=== PATIENT | male | born 1980 | race Caucasian/White ===

== ENCOUNTER 2017-08-25 15:22 | Emergency (ER) | payer OTHER ==
[2015-06-11 11:03] VITALS: Wt 90.7 kg
[~2017-08-25 15:22] MED LIST: DOCU-202 PO; METF-421 PO; MINO100T8 PO; MULT1CAP59 PO; PER PO
--- NOTE | 2017-08-25 15:28 | ER Report ---
History and Physical Time Seen By MD: 15:28 Allergies: Coded Allergies: No Known Drug Allergies (Unverified , 08/25/17) Home Meds Reported Medications Multivitamin (MULTIVITAMINS) 1 Each Capsule, 1 EACH PO, CAPSULE 06/10/15 Metformin Hcl (METFORMIN HCL) 1,000 Mg Tablet, 1 TAB PO BID, TAB 06/10/15 Discontinued Reported Medications Minocycline Hcl (MINOCYCLINE HCL) 100 Mg Tablet, 100 MG PO BID, CAPSULE 06/10/15 Hx Smoking: No Smoking Status: Never Smoker Hx Substance Use Disorder: No Hx Alcohol Use: No Constitutional Vital Sign - Last 24 Hours 08/25/17 15:32 Temp 98.4 Pulse 92 Resp 24 B/P (MAP) 157/120 Pulse Ox 98 O2 Delivery Room Air Medical Decision Making Data Points Result Diagram: 08/25/17 1537 Laboratory Hematology Test 08/25/17 15:31 08/25/17 15:37 Red Blood Count 5.94 M/uL (4.00-5.60) Mean Corpuscular Volume 85.0 fL (80.0-96.0) Mean Corpuscular Hemoglobin 30.5 pg (26.0-33.0) Mean Corpuscular Hemoglobin Concent 35.9 g/dL (32.0-36.0) Red Cell Distribution Width 13.6 % (11.5-14.5) Mean Platelet Volume 7.6 fL (7.2-11.1) Neutrophils (%) (Auto) 67.8 % (39.4-72.5) Lymphocytes (%) (Auto) 21.2 % (17.6-49.6) Monocytes (%) (Auto) 8.5 % (4.1-12.4) Eosinophils (%) (Auto) 1.3 % (0.4-6.7) Basophils (%) (Auto) 1.2 % (0.3-1.4) Nucleated RBC Relative Count (auto) 0.1 /100WBC Neutrophils # (Auto) 6.7 K/uL (2.0-7.4) Lymphocytes # (Auto) 2.1 K/uL (1.3-3.6) Monocytes # (Auto) 0.8 K/uL (0.3-1.0) Eosinophils # (Auto) 0.1 K/uL (0.0-0.5) Basophils # (Auto) 0.1 K/uL (0.0-0.1) Nucleated RBC Absolute Count (auto) 0.01 K/uL Sodium Level 142 mmol/L (137-145) Potassium Level 4.1 mmol/L (3.5-5.0) Chloride Level 101 mmol/L (98-107) Carbon Dioxide Level 23 mmol/L (22-30) Blood Urea Nitrogen 13 mg/dl (9-21) Creatinine 0.80 mg/dl (0.66-1.25) Glomerular Filtration Rate Calc > 60.0 Random Glucose 227 mg/dl (75-110) Calcium Level 10.2 mg/dl (8.4-10.2) Total Bilirubin 0.7 mg/dl (0.2-1.3) Aspartate Amino Transf (AST/SGOT) 61 U/L (0-35) Alanine Aminotransferase (ALT/SGPT) 111 U/L (0-56) Alkaline Phosphatase 109 U/L (0-126) Total Protein 8.3 gm/dl (6.3-8.2) Albumin 5.1 g/dl (3.5-5.0) Chemistry Test 08/25/17 15:31 08/25/17 15:37 White Blood Count 9.9 k/uL (4.5-11.0) Red Blood Count 5.94 M/uL (4.00-5.60) Hemoglobin 18.1 g/dL (14.0-18.0) Hematocrit 50.5 % (42.0-52.0) Mean Corpuscular Volume 85.0 fL (80.0-96.0) Mean Corpuscular Hemoglobin 30.5 pg (26.0-33.0) Mean Corpuscular Hemoglobin Concent 35.9 g/dL (32.0-36.0) Red Cell Distribution Width 13.6 % (11.5-14.5) Platelet Count 333 K/uL (150-450) Mean Platelet Volume 7.6 fL (7.2-11.1) Neutrophils (%) (Auto) 67.8 % (39.4-72.5) Lymphocytes (%) (Auto) 21.2 % (17.6-49.6) Monocytes (%) (Auto) 8.5 % (4.1-12.4) Eosinophils (%) (Auto) 1.3 % (0.4-6.7) Basophils (%) (Auto) 1.2 % (0.3-1.4) Nucleated RBC Relative Count (auto) 0.1 /100WBC Neutrophils # (Auto) 6.7 K/uL (2.0-7.4) Lymphocytes # (Auto) 2.1 K/uL (1.3-3.6) Monocytes # (Auto) 0.8 K/uL (0.3-1.0) Eosinophils # (Auto) 0.1 K/uL (0.0-0.5) Basophils # (Auto) 0.1 K/uL (0.0-0.1) Nucleated RBC Absolute Count (auto) 0.01 K/uL Glomerular Filtration Rate Calc > 60.0 Calcium Level 10.2 mg/dl (8.4-10.2) Total Bilirubin 0.7 mg/dl (0.2-1.3) Aspartate Amino Transf (AST/SGOT) 61 U/L (0-35) Alanine Aminotransferase (ALT/SGPT) 111 U/L (0-56) Alkaline Phosphatase 109 U/L (0-126) Total Protein 8.3 gm/dl (6.3-8.2) Albumin 5.1 g/dl (3.5-5.0) Urinalysis Test 08/25/17 15:31 Depart Departure Latest Vital Signs Vital Signs Date Time Temp Pulse Resp B/P (MAP) Pulse Ox O2 Delivery O2 Flow Rate FiO2 08/25/17 15:32 98.4 92 24 157/120 98 Room Air MARTIN CHAHAL DO August 25, 2017 15:28
--- NOTE | 2017-08-25 15:28 | ER Report ---
History and Physical Time Seen By MD: 15:27 HPI/ROS CHIEF COMPLAINT: R Flank pain HISTORY OF PRESENT ILLNESS: Pt here for evaluation of r flank pain for last 3 days. pain was initially intermittent but now constant. + nausea no vomiting. pt unable to get comfortable. went to urgent care and urine was checked and showed blood and glucose. Pt sent to ed for further evalution. Pt never had this pain before. Starts in r flank and radiates around to front. no trouble with urination. has had loose stools. no fevers. no chills REVIEW OF SYSTEMS: Constitutional: No fever, no chills. Eyes: No discharge. ENT: No sore throat. Cardiovascular: No chest pain, no palpitations. Respiratory: No cough, no shortness of breath. Gastrointestinal: + abdominal pain, + nausa, no vomiting. Genitourinary: No hematuria. Musculoskeletal:+ back pain. Skin: No rashes. Neurological: No headache. Allergies: Coded Allergies: No Known Drug Allergies (Unverified , 08/25/17) Home Meds Active Scripts Tamsulosin Hcl (FLOMAX) 0.4 Mg Cap.er.24h, 0.4 MG PO DAILY, #14 CAP Prov:LAURORA,MARTIN V DO 08/25/17 Oxycodone Hcl/Acetaminophen (OXYCODONE-ACETAMINOPHEN 5-325) 1 Each Tablet, 1-2 EACH PO Q4-6H Y for pain, #20 TAB Prov:LAURORA,MARTIN V DO 08/25/17 Reported Medications Multivitamin (MULTIVITAMINS) 1 Each Capsule, 1 EACH PO, CAPSULE 06/10/15 Metformin Hcl (METFORMIN HCL) 1,000 Mg Tablet, 1 TAB PO BID, TAB 06/10/15 Discontinued Reported Medications Minocycline Hcl (MINOCYCLINE HCL) 100 Mg Tablet, 100 MG PO BID, CAPSULE 06/10/15 Past Medical/Surgical History Pmhx: dm Pshx: appy Reviewed Nurses Notes: Yes Old Medical Records Reviewed: Yes Hx Smoking: No Smoking Status: Never Smoker Hx Substance Use Disorder: No Hx Alcohol Use: No Constitutional Vital Sign - Last 24 Hours 08/25/17 08/25/17 08/25/17 08/25/17 15:32 15:32 15:52 16:00 Temp 98.4 Pulse 92 94 Resp 24 B/P (MAP) 157/120 (132) 157/120 148/107 (121) Pulse Ox 98 93 O2 Delivery Room Air 08/25/17 08/25/17 08/25/17 08/25/17 16:22 16:30 16:52 17:00 Pulse 94 91 B/P (MAP) 142/96 (111) 136/86 (103) Pulse Ox 93 93 Intake and Output 08/25/17 08/25/17 08/26/17 15:00 23:00 07:00 Intake Total 500 ml Balance 500 ml Physical Exam General Appearance: The patient is alert, has no immediate need for airway protection and no signs of toxicity. Eyes: Pupils equal and round no pallor or injection, EOMI ENT: no pharyngeal erythema or exudates, Mucous membranes are moist, Respiratory: There are no retractions, lungs are clear to auscultation. Cardiovascular: Regular rate and rhythm. pulses are equal and symmetrical Gastrointestinal: Abdomen is soft with ruq tenderness, no masses, bowel sounds normal, no guarding, no rigidity or rebound Neurological: Cranial nerves II-XII grossly intact, no sensory or motor loss Skin: Warm and dry, no rashes. Musculoskeletal: Neck is supple non tender, no vertebral tenderness, + r cva tenderness Extremities are nontender, non swollen and have full range of motion. DIFFERENTIAL DIAGNOSIS: After history and physical exam differential diagnosis was considered for kidney stone, cholecystitis, muscleskeletal Medical Decision Making Data Points Result Diagram: 08/25/17 1537 08/25/17 1537 Laboratory Hematology Test 08/25/17 15:31 08/25/17 15:37 Urine Color Straw Urine Clarity Clear Urine pH 5.0 pH (4.8-9.5) Urine Specific [place] 1.014 Urine Protein 30 mg/dL (NEGATIVE) Urine Glucose (UA) 500 mg/dL (NEGATIVE) Urine Ketones Negative mg/dL (NEGATIVE) Urine Blood Moderate (NEGATIVE) Urine Nitrite Negative (NEGATIVE) Urine Bilirubin Negative (NEGATIVE) Urine Urobilinogen Negative mg/dL (0.2-1.9) Urine Leukocyte Esterase Negative (NEGATIVE) Urine RBC 4 /HPF (0-2/HPF) Urine WBC None /HPF (0-5/HPF) Urine Squamous Epithelial Cells None /LPF (</=FEW) Urine Bacteria Negative /HPF (NONE-FEW) Urine Mucus None /HPF (NONE-FEW) Red Blood Count 5.94 M/uL (4.00-5.60) Mean Corpuscular Volume 85.0 fL (80.0-96.0) Mean Corpuscular Hemoglobin 30.5 pg (26.0-33.0) Mean Corpuscular Hemoglobin Concent 35.9 g/dL (32.0-36.0) Red Cell Distribution Width 13.6 % (11.5-14.5) Mean Platelet Volume 7.6 fL (7.2-11.1) Neutrophils (%) (Auto) 67.8 % (39.4-72.5) Lymphocytes (%) (Auto) 21.2 % (17.6-49.6) Monocytes (%) (Auto) 8.5 % (4.1-12.4) Eosinophils (%) (Auto) 1.3 % (0.4-6.7) Basophils (%) (Auto) 1.2 % (0.3-1.4) Nucleated RBC Relative Count (auto) 0.1 /100WBC Neutrophils # (Auto) 6.7 K/uL (2.0-7.4) Lymphocytes # (Auto) 2.1 K/uL (1.3-3.6) Monocytes # (Auto) 0.8 K/uL (0.3-1.0) Eosinophils # (Auto) 0.1 K/uL (0.0-0.5) Basophils # (Auto) 0.1 K/uL (0.0-0.1) Nucleated RBC Absolute Count (auto) 0.01 K/uL Sodium Level 142 mmol/L (137-145) Potassium Level 4.1 mmol/L (3.5-5.0) Chloride Level 101 mmol/L (98-107) Carbon Dioxide Level 23 mmol/L (22-30) Blood Urea Nitrogen 13 mg/dl (9-21) Creatinine 0.80 mg/dl (0.66-1.25) Glomerular Filtration Rate Calc > 60.0 Random Glucose 227 mg/dl (75-110) Calcium Level 10.2 mg/dl (8.4-10.2) Total Bilirubin 0.7 mg/dl (0.2-1.3) Aspartate Amino Transf (AST/SGOT) 61 U/L (0-35) Alanine Aminotransferase (ALT/SGPT) 111 U/L (0-56) Alkaline Phosphatase 109 U/L (0-126) Total Protein 8.3 gm/dl (6.3-8.2) Albumin 5.1 g/dl (3.5-5.0) Chemistry Test 08/25/17 15:31 08/25/17 15:37 Urine Color Straw Urine Clarity Clear Urine pH 5.0 pH (4.8-9.5) Urine Specific [place] 1.014 Urine Protein 30 mg/dL (NEGATIVE) Urine Glucose (UA) 500 mg/dL (NEGATIVE) Urine Ketones Negative mg/dL (NEGATIVE) Urine Blood Moderate (NEGATIVE) Urine Nitrite Negative (NEGATIVE) Urine Bilirubin Negative (NEGATIVE) Urine Urobilinogen Negative mg/dL (0.2-1.9) Urine Leukocyte Esterase Negative (NEGATIVE) Urine RBC 4 /HPF (0-2/HPF) Urine WBC None /HPF (0-5/HPF) Urine Squamous Epithelial Cells None /LPF (</=FEW) Urine Bacteria Negative /HPF (NONE-FEW) Urine Mucus None /HPF (NONE-FEW) White Blood Count 9.9 k/uL (4.5-11.0) Red Blood Count 5.94 M/uL (4.00-5.60) Hemoglobin 18.1 g/dL (14.0-18.0) Hematocrit 50.5 % (42.0-52.0) Mean Corpuscular Volume 85.0 fL (80.0-96.0) Mean Corpuscular Hemoglobin 30.5 pg (26.0-33.0) Mean Corpuscular Hemoglobin Concent 35.9 g/dL (32.0-36.0) Red Cell Distribution Width 13.6 % (11.5-14.5) Platelet Count 333 K/uL (150-450) Mean Platelet Volume 7.6 fL (7.2-11.1) Neutrophils (%) (Auto) 67.8 % (39.4-72.5) Lymphocytes (%) (Auto) 21.2 % (17.6-49.6) Monocytes (%) (Auto) 8.5 % (4.1-12.4) Eosinophils (%) (Auto) 1.3 % (0.4-6.7) Basophils (%) (Auto) 1.2 % (0.3-1.4) Nucleated RBC Relative Count (auto) 0.1 /100WBC Neutrophils # (Auto) 6.7 K/uL (2.0-7.4) Lymphocytes # (Auto) 2.1 K/uL (1.3-3.6) Monocytes # (Auto) 0.8 K/uL (0.3-1.0) Eosinophils # (Auto) 0.1 K/uL (0.0-0.5) Basophils # (Auto) 0.1 K/uL (0.0-0.1) Nucleated RBC Absolute Count (auto) 0.01 K/uL Glomerular Filtration Rate Calc > 60.0 Calcium Level 10.2 mg/dl (8.4-10.2) Total Bilirubin 0.7 mg/dl (0.2-1.3) Aspartate Amino Transf (AST/SGOT) 61 U/L (0-35) Alanine Aminotransferase (ALT/SGPT) 111 U/L (0-56) Alkaline Phosphatase 109 U/L (0-126) Total Protein 8.3 gm/dl (6.3-8.2) Albumin 5.1 g/dl (3.5-5.0) Urinalysis Test 08/25/17 15:31 Urine Color Straw Urine Clarity Clear Urine pH 5.0 pH (4.8-9.5) Urine Specific [place] 1.014 Urine Protein 30 mg/dL (NEGATIVE) Urine Glucose (UA) 500 mg/dL (NEGATIVE) Urine Ketones Negative mg/dL (NEGATIVE) Urine Blood Moderate (NEGATIVE) Urine Nitrite Negative (NEGATIVE) Urine Bilirubin Negative (NEGATIVE) Urine Urobilinogen Negative mg/dL (0.2-1.9) Urine Leukocyte Esterase Negative (NEGATIVE) Urine RBC 4 /HPF (0-2/HPF) Urine WBC None /HPF (0-5/HPF) Urine Squamous Epithelial Cells None /LPF (</=FEW) Urine Bacteria Negative /HPF (NONE-FEW) Urine Mucus None /HPF (NONE-FEW) EKG/Imaging Imaging 4mm stone in right side of his proximal ureter. ED Course/Re-evaluation Clinical Indication for ER IV: IV Access ED Course check labs and ct Pts pain returned after dilaudid so will give toradol. 08/25/2017 4:59:21 pm Pts pain is better controlled. Pt does have a proximal stone. Explained that it is possible that his stone may not pass so needs close follow up. If he is unable to tolerate the pain or can not take his pain meds due to vomiting then he needs to return. If he develops a fever he also needs to return. Decision to Disposition Date: August 25, 2017 Decision to Disposition Time: 17:38 Depart Departure Latest Vital Signs Vital Signs Date Time Temp Pulse Resp B/P (MAP) Pulse Ox O2 Delivery O2 Flow Rate FiO2 08/25/17 17:00 136/86 (103) 08/25/17 16:52 91 93 08/25/17 15:32 98.4 24 Room Air Impression: Primary Impression: Nephrolithiasis Condition: Improved Disposition: HOME OR SELF-CARE Referrals: TRISTEN DUVALL MD 5 Days New Scripts Tamsulosin Hcl (FLOMAX) 0.4 Mg Cap.er.24h 0.4 MG PO DAILY, #14 CAP Prov: MARTIN CHAHAL DO 08/25/17 Oxycodone Hcl/Acetaminophen (OXYCODONE-ACETAMINOPHEN 5-325) 1 Each Tablet 1-2 EACH PO Q4-6H Y for pain, #20 TAB Prov: MARTIN CHAHAL DO 08/25/17 Patient Instructions: Kidney Stones (GEN) Additional Instructions: You have a 4mm kidney stone in your right proximal ureter. They stone needs to move from your ureter to your bladder and then you will urinate it out. The time it takes to move varies for each person. Strain your urine looking for the stone. Follow up with urology, call monday. You will have pain when it moves. We are putting you on a pain pill, percocet, to help control your pain. 1-2 percocet every 4 hours as needed for pain We are also putting you on once a day medication, Flomax, to help your stone move. Your scripts are at [facility]. If your pain is not controlled or if a fever develops then return to emergency room MARTIN CHAHAL DO August 25, 2017 15:28
[2017-08-25] MEDS ORDERED: HYDROmorphone* 1 MG/ML 1 MG/ML ML IVP ONE (15:40)
[2017-08-25] MEDS ORDERED: ONDANSETRON 4 MG/2 ML VIAL IVP ONE (15:40)
[2017-08-25 15:46] LABS: PLATELET COUNT, AUTOMATED 333 K/uL (150-450)
[2017-08-25] MEDS ORDERED: IOPAMIDOL 76% 75 ML INFUS BTL 75 ML ONE (16:06)
[2017-08-25] MEDS ORDERED: KETOROLAC 15 MG/ML VIAL IVP ONE (16:20)
[2017-08-25] MEDS ORDERED: TAMSULOSIN HCL 0.4 MG CAP PO ONE (16:40)
--- NOTE | 2017-08-25 16:43 | RADIOLOGY IMAGING REPORT ---
FACILITY: [facility] PATIENT NAME: Dee Ochoa : 1980 MR: [id number] V: [id number] EXAM DATE: ORDERING PHYSICIAN: MATRIN CHAHAL TECHNOLOGIST: Location: [facility] [place] Patient: Dee Ochoa : 1980 Visit/Account:[id number] Date of Sevice: 08/25/2017 ABDOMEN/PELVIS WITH CONTRAST HISTORY: Right flank pain TECHNIQUE: CT abdomen and pelvis 75 cc of Isovue 370 IV. One of the following dose optimization mitzi hniques was utilized in the performance of this exam: automated exposure control; adjustment of the m A and/or kV according to the patient's size; or use of an iterative reconstruction technique. Specif ic details can be referenced in the facility's radiology CT exam operational policy. COMPARISON: None. FINDINGS: Liver/gallbladder: There is generalized decreased attenuation consistent with fatty infiltration. Th ere is no mass. Gallbladder is normal. Spleen: Normal. Adrenals: Normal. Pancreas: Normal enhancement without evidence of mass. Kidneys/: The proximal right ureter, there is a 3 mm calculus. There is mild hydronephrosis. Left kidney is normal. Pelvis: Urinary bladder is normal. GI: There is no focal abnormality in the small bowel or colon. Vessels/spaces/nodes: Negative. Bones/soft tissues: There are no lytic or blastic bone lesions. Soft tissues are normal. Visualized lung bases: Clear. IMPRESSION: 1. There is a 4 mm calculus proximal right ureter, causing mild right hydronephrosis. 2. Diffuse fatty infiltration of the liver. This was called by Dr. Waldrop to MARTIN CHAHAL on 08/25/2017 4:33 PM Report Dictated By: Nadir Waldrop at 08/25/2017 4:33 PM Report E-Signed By: Nadir Waldrop at 08/25/2017 4:38 PM WSN:[id number]
[2017-08-25] MEDS ORDERED: NS(*) 0.9% 500 ML BAG 500 ML IV ONE (16:50)
[2017-08-25] MEDS ORDERED: PER PO (16:52)
[2017-08-25] MEDS ORDERED: TAMS0.4C25 PO (16:54)
[2017-08-25] MEDS ORDERED: OXYC-373 PO (16:54)
[2017-08-25 17:00] VITALS: BP 136/86
== END 2017-08-25 17:36 | disposition home or self-care (01) ==
LOC: ER 15:23
DX: N20.0 Calculus of kidney (principal)
CPT/HCPCS: 74177; 81001; 85025; 96361; 96374; 96375; 99284; J1170; J1885; J2405; J7040; Q9967; 82040; 82247; 82310; 82374; 82435; 82565; 82947; 84075; 84132; 84155; 84295; 84450; 84460; 84520